=== PATIENT | male | born 1995 | race Caucasian/White ===

== ENCOUNTER 2024-11-01 15:24 | Emergency (ER) | payer OTHER, BC, SELFPAY ==
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
[2024-11-01 15:28] VITALS: BP 138/95; PULSE 99; RESP 18; TEMP 37.1; O2SAT 98
--- OUTSIDE RECORDS SUMMARY | 2024-11-01 15:57 | XMS_ITS | Clinical Summary ---
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 14 tablet 5 Active diphenhydrAMINE (BENADRYL) 25 MG tabletIndicatio ns:Dermatitis Take 2 tablets (50 mg total) by mouth nightly as needed for Itching. 14 tablet 5 Active predniSONE (DELTASONE) 20 MG tabletIndicatio ns:Dermatitis 3 TABS PO DAILY X 3 DAYS, THEN 2 TABS PO DAILY X 3 DAYS, THEN 1 TAB PO DAILY X 3 DAYS. 18 tablet 5 Active triamcinolone (KENALOG) 0.1 % creamIndication s:Dermatitis Apply topically 2 (two) times daily. 80 g 1 5 Active Active Problems Problem Noted Date Diagnosed Date Class 1 obesity due to exces s calories without serious comorbidity with body mass index (BMI) of 32.0 to 32.9 in adult 03/03/2023 Resolved Problems Problem Noted Date Diagnosed Date Resolved Date Acne 10/31/2013 05/30/2024 Encounter for preventive health examination 01/07/2012 11/16/2019 Immunizations Immunization Administration Dates Next Due Dtap 04/09/1998,05/17/1997,03/12/1997 ,1996 Hepatitis B Pediatric 04/09/1998,03/12/1997,12/06 Hib (Generic) 1998,04/09/1998,03/12/1997 ,1996 MMR 04/09/1998 Opv 04/09/1998 Polio IPV (Ipol) 03/12/1997,1996 Varicella Vaccine 10/31/2013 Family History Medical History Relation Comments Cancer Maternal Grandmother Cancer Paternal Grandfather Diabetes Paternal Grandmother Relation Status Comments Maternal Grandmother Paternal Grandfather Paternal Grandmother Social History Tobacco Use Types Packs/Day Years Used Date Smoking Tobacco: Former Passive Smoke Exposure: Past Smokeless Tobacco: Never Tobacco Cessation:Counseling Given: No Alcohol Use Standard Drinks/Week Comments Yes 1 (1 standard drink = 0.6 oz pur e alcohol) social PHQ-2 Answer Date Recorded Patient Health Questionnaire-2 Score 0 05/30/2024 Sex and Gender Information Value Date Recorded Sex Assigned at Male 05/30/2024 2:02 PM CDT Legal Sex Male 4:32 PM CDT Gender Identity Male 05/30/2024 2:02 PM CDT Sexual Orientation Straight 05/30/2024 2: 02 PM CDT Last Filed Vital Signs Vital Sign Reading Time Taken Comments Blood Pressure 118/70 05/30/2024 2:03 PM CDT Pulse 98 05/30/2024 2:03 PM CDT Temperature 37.2 C (98.9 F) 05/30/2024 2:03 PM CDT Respiratory Rate 18 05/30/2024 2:03 PM CDT Oxygen Saturation 97% 05/30/2024 2:03 PM CDT Inhaled Oxygen Concentration - - Weight 108.9 kg (240 lb) 05/30/2024 2:03 PM CDT Height 180.3 cm (5' 11) 03/03/2023 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 Body Mass Index 33.47 03/03/2023 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 Plan of Treatment Health Maintenance Due Date Last Done Comments Annual Physical 10/31/1999 DTaP, Tdap and Td Vaccines (5 - Tdap) 10/31/2007 04/09/1998, 05/17/1997, 03/12/1997, Additional history exists Hepatitis C 2014 HPV Vaccines (1 - 3-dose SCDM series) 10/31/2023 COVID-19 Vaccine (1 - 2024- season) 2023 Hepatitis B Vaccines Completed 04/09/1998, 03/12/1997, 1996 PHQ-2 (Physician [place]) Completed 05/30/2024 Meningococcal B Vaccine Aged Out No l onger eligible based on patient's age to complete this topic Meningococcal Vaccine Aged Out No eve humble eligible based on patient's age to complete this topic Pneumococcal Vaccine: Pediatrics (0 to 5 Years) and At-Risk Patients (6 to 49 Years) Aged Out No longer eligible based on patient's age to complete this topic RSV Immunizations Under 20 Months Aged Out No longer eligible based on patient's age to complete this topic Insurance [facility] Care Teams 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
--- OUTSIDE RECORDS SUMMARY | 2024-11-01 15:57 | XMS_ITS | Clinical Summary ---
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 Gender Identity Not on file Sexual Orientation Not on file Plan of Treatment Health Maintenance Due Date Last Done Comments Hepatitis C Virus (HCV) Screening 1996 TdaP Immunization 1996 Human Papillomavirus (HPV) Immunization (1 - 3-dose SCDM series) 10/31/2023 SARS-COV-2 Immunization ( - 2023- season) 2023 Influenza Immunization (#1) 2024 Respiratory Syncytial Virus (RSV) Immunization (Adult) (1 - 1-dose 75+ series) 10/31/2071 DTaP/Tdap/Td Immunization Discontinued 1998, 05/17/1997, 03/12/1997, Additional history exists Hepatitis B Immunization Completed 999, 03/12/1997, 1996 Meningococcal Immunization (ACWY) Aged Out No longer eligible based on patient's age to complete this topic Pneumococcal Immunization Combined Aged Out No longer eligible based on patient's age to complete this topic Rotavirus Immunization Aged Out No lo nger eligible based on patient's age to complete this topic
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
[2024-11-01 17:33] VITALS: BP 144/91; PULSE 83; RESP 18; TEMP 36.8; O2SAT 97
== END 2024-11-01 17:36 | disposition home or self-care (01) ==
PROVIDERS: Emergency Provider Physician Assistant
DX: S80.12XA Contusion of left lower leg, initial encounter (principal); V49.40XA Driver injured in collision with unspecified motor vehicles in traffic accident, initial encounter
CPT/HCPCS: 71046; 73590; 99284